=== PATIENT | female | born 1940 | race Caucasian/White ===

== ENCOUNTER 2017-08-16 10:23 | Inpatient (IN) | payer MEDICARE ==
[~2017-08-16] VITALS: Ht 152.4 cm; Wt 54.4 kg
[2017-08-16] MEDS ORDERED: ASPIRIN 81MG TABLET PO ONE (11:30)
[2017-08-16] MEDS ORDERED: DIPHENHYDRAMINE 50MG CAPSULE PO ONE (11:30)
[2017-08-16 11:36] LABS: BASOPHILS % 0.7 % (0.0-2.0); EOSINOPHILS % 2.3 % (0.0-5.0); HEMATOCRIT. 38.1 % (36.0-48.0); HEMOGLOBIN. 13.1 g/dL (12.0-16.0); LYMPHOCYTES % 41.6 % (20.0-50.0); MEAN CORPUSCULAR HEMOGLOBIN 30.2 pg (28.0-32.0); MEAN CORPUSCULAR VOLUME 87.5 fL (81.0-99.0); MEAN PLATELET VOLUME 9.5 fl (7.4-10.4); MONOCYTES % 9.3 % (2.0-8.0); NEUTROPHILS % 46.1 % (40.0-76.0); PLATELET 251 x1000/uL (130-400); RED BLOOD CELL COUNT 4.35 mill/uL (4.2-5.4); RED CELL DISTRIBUTION WIDTH 12.8 % (11.6-14.6)
[2017-08-16 11:39] LABS: PROTHROMBIN TIME 10.4 sec (9.4-11.6)
[2017-08-16 11:43] LABS: CHLORIDE 102 mEq/L (98-107)
[2017-08-16 11:49] LABS: TROPONIN I < 0.02 ng/mL (0.00-0.04)
[2017-08-16] MEDS ORDERED: AMLODIPINE 5MG TABLET PO NR (15:42)
[2017-08-16 15:44] VITALS: BP 125/59
[2017-08-16 16:00] VITALS: BP 141/62
[2017-08-16] MEDS ORDERED: REGADENOSON 0.4 MG/5 ML IV NR (16:15)
[2017-08-16] MEDS ORDERED: DEXTROSE 50% WATER 50ML SYRINGE IV PRN (18:30)
[2017-08-16] MEDS: ENOXAPARIN 30MG/0.3ML SYR SUBCUT SCH (19:06)
[2017-08-16 20:00] VITALS: BP 118/50
[2017-08-16] MEDS: BLOOD SUGAR DIAGNOSTIC STRIP TEST SCH (20:43)
[2017-08-16] MEDS: INSULIN LISPRO 100 UNITS/ML SUBCUT SCH (20:51)
[2017-08-16] MEDS ORDERED: ATORVASTATIN CALCIUM 10MG TABLET PO SCH (21:00)
[2017-08-17 04:00] VITALS: BP 154/62
[2017-08-17 05:51] LABS: BASOPHILS % 0.8 % (0.0-2.0); EOSINOPHILS % 2.6 % (0.0-5.0); HEMATOCRIT. 36.2 % (36.0-48.0); HEMOGLOBIN. 12.6 g/dL (12.0-16.0); LYMPHOCYTES % 47.8 % (20.0-50.0); MEAN CORPUSCULAR HEMOGLOBIN 30.4 pg (28.0-32.0); MEAN CORPUSCULAR VOLUME 87.4 fL (81.0-99.0); MEAN PLATELET VOLUME 9.3 fl (7.4-10.4); MONOCYTES % 9.7 % (2.0-8.0); NEUTROPHILS % 39.1 % (40.0-76.0); PLATELET 213 x1000/uL (130-400); RED BLOOD CELL COUNT 4.15 mill/uL (4.2-5.4); RED CELL DISTRIBUTION WIDTH 12.7 % (11.6-14.6)
[2017-08-17] MEDS: BLOOD SUGAR DIAGNOSTIC STRIP TEST SCH ×2 (06:17→11:50)
[2017-08-17] MEDS: INSULIN LISPRO 100 UNITS/ML SUBCUT SCH ×2 (06:17→12:13)
[2017-08-17 06:51] LABS: CHLORIDE 102 mEq/L (98-107)
[2017-08-17 07:00] LABS: TROPONIN I < 0.02 ng/mL (0.00-0.04)
[2017-08-17 08:00] VITALS: BP 151/59
[2017-08-17] MEDS ORDERED: ASPIRIN 81MG EC TABLET PO SCH (09:00)
[2017-08-17] MEDS ORDERED: AMLODIPINE 5MG TABLET PO SCH (09:00)
[2017-08-17] MEDS ORDERED: REGADENOSON 0.4 MG/5 ML IV ONE (10:22)
[2017-08-17 12:00] VITALS: BP 138/62
[2017-08-17] MEDS ORDERED: AMLO2.5T45 PO (13:22)
[2017-08-17] MEDS ORDERED: PREG200C PO (13:25)
[2017-08-17] MEDS ORDERED: PREG150C PO (13:25)
[2017-08-17] MEDS ORDERED: TRAM50TA3 PO (13:28)
[2017-08-17] MEDS ORDERED: ICOS1CAP PO (13:29)
[2017-08-17] MEDS ORDERED: FENO160T9 PO (13:31)
[2017-08-17] MEDS ORDERED: LISI40TA4 PO (13:32)
[2017-08-17] MEDS ORDERED: FAMO20TA8 PO (13:34)
[2017-08-17] MEDS ORDERED: INSU100I13 SQ (13:37)
[2017-08-17] MEDS ORDERED: INSU300I SQ (13:39)
[2017-08-17 16:00] VITALS: BP 146/62
[2017-08-17] MEDS: ENOXAPARIN 30MG/0.3ML SYR SUBCUT SCH (16:00)
[2017-08-17 16:59] VITALS: BP 146/62
== END 2017-08-17 17:17 | disposition home or self-care (01) | DRG 205 ==
LOC: EDBEDREQ 11:18 → ER 11:52 → ENRESERV 13:06 → 5WST 13:39 → EDBEDREQ 13:41
PROVIDERS: ADMIT Internal Medicine; ATTEND Internal Medicine
DX: M94.0 Chondrocostal junction syndrome [Tietze] (principal); N17.0 Acute kidney failure with tubular necrosis; E11.22 Type 2 diabetes mellitus with diabetic chronic kidney disease; E86.0 Dehydration; I13.10 Hypertensive heart and chronic kidney disease without heart failure, with stage 1 through stage 4 chronic kidney disease, or unspecified chronic kidney disease; I10 Essential (primary) hypertension; E78.5 Hyperlipidemia, unspecified; N18.9 Chronic kidney disease, unspecified; Z79.4 Long term (current) use of insulin; Z90.49 Acquired absence of other specified parts of digestive tract
CPT/HCPCS: 36415; 71045; 78452; 80048; 80053; 82962; 83880; 84484; 85025; 85610; 93005; 93017; 93306; 99285; A9500; J1650; J1815; J2785; Q0163

== ENCOUNTER 2018-07-23 14:09 | Emergency (ER) | payer MEDICARE ==
[~2018-07-23] VITALS: Ht 152.4 cm; Wt 57.0 kg
[~2018-07-23 14:09] MED LIST: AMLO2.5T45 PO; FAMO20TA8 PO; FENO160T9 PO; ICOS1CAP PO; INSU100I13 SQ; INSU300I SQ; LISI40TA4 PO; PREG150C PO; TRAM50TA3 PO
[2018-07-23 17:45] LABS: BASOPHILS % 0.7 % (0.0-2.0); EOSINOPHILS % 2.5 % (0.0-5.0); HEMATOCRIT. 36.4 % (36.0-48.0); HEMOGLOBIN. 12.4 g/dL (12.0-16.0); LYMPHOCYTES % 43.7 % (20.0-50.0); MEAN CORPUSCULAR HEMOGLOBIN 28.9 pg (28.0-32.0); MEAN PLATELET VOLUME 9.5 fl (7.4-10.4); MONOCYTES % 9.4 % (2.0-8.0); NEUTROPHILS % 43.7 % (40.0-76.0); PLATELET 246 x1000/uL (130-400); RED BLOOD CELL COUNT 4.28 mill/uL (4.2-5.4); RED CELL DISTRIBUTION WIDTH 15.7 % (11.6-14.6)
[2018-07-23 17:49] LABS: CHLORIDE 109 mEq/L (98-107)
[2018-07-23 17:52] LABS: PROTHROMBIN TIME 9.6 sec (9.1-11.1)
[2018-07-23 17:55] LABS: CLARITY URINE CLEAR (CLEAR); COLOR URINE YELLOW (YELLOW); KETONES URINE NEGATIVE (NEGATIVE); LEUKOCYTE ESTERASE URINE 2+ (NEGATIVE); NITRITE URINE NEGATIVE (NEGATIVE); OCCULT BLOOD URINE NEGATIVE (NEGATIVE); PROTEIN URINE NEGATIVE (NEGATIVE); SPECIFIC GRAVITY URINE 1.007 (1.005-1.030); UROBILINOGEN URINE 0.2 E.U./dL (0.2-1.0)
[2018-07-23 18:50] VITALS: BP 114/60
== END 2018-07-23 19:00 | disposition home or self-care (01) ==
LOC: ER 14:09
DX: N39.0 Urinary tract infection, site not specified (principal); N28.9 Disorder of kidney and ureter, unspecified; E11.9 Type 2 diabetes mellitus without complications; E78.00 Pure hypercholesterolemia, unspecified; I10 Essential (primary) hypertension; Z98.51 Tubal ligation status; Z79.4 Long term (current) use of insulin; Z79.899 Other long term (current) drug therapy
CPT/HCPCS: 36415; 71045; 84484; 93005; 99284

== ENCOUNTER 2021-08-13 17:56 | Inpatient (IN) | payer BC, MEDICARE ==
[~2021-08-13] VITALS: Ht 152.4 cm; Wt 54.4 kg
[~2021-08-13 17:56] MED LIST changes: +LISI40TA13 PO; -LISI40TA4 PO
[2021-08-13 19:29] LABS: BASOPHILS % 0.5 % (0.0-2.0); EOSINOPHILS % 3.9 % (0.0-5.0); HEMATOCRIT. 30.9 % (36.0-48.0); HEMOGLOBIN. 10.7 g/dL (12.0-16.0); LYMPHOCYTES % 23.1 % (20.0-50.0); MEAN PLATELET VOLUME 9.4 fl (7.4-10.4); NEUTROPHILS % 64.5 % (40.0-76.0); PLATELET 198 x1000/uL (130-400); RED BLOOD CELL COUNT 3.68 mill/uL (4.2-5.4); RED CELL DISTRIBUTION WIDTH 15.7 % (11.6-14.6)
[2021-08-13 19:35] LABS: CHLORIDE 102 mEq/L (98-107)
[2021-08-13] MEDS ORDERED: FUROSEMIDE 100MG/10ML VIAL IV NR (19:57)
[2021-08-13] MEDS ORDERED: INSULIN REGULAR (HUMULIN R) 300UNITS/3ML VIAL IV NR (20:00)
[2021-08-13] MEDS ORDERED: CALCIUM GLUCONATE 100MG/ML 10ML VIAL IV NR (20:00)
[2021-08-13] MEDS ORDERED: ASPIRIN 325MG EC TABLET PO ONE (21:00)
[2021-08-13] MEDS ORDERED: MAGNESIUM/ALUMINUM HYDROXIDE/SIMETHICONE 30ML UDC PO ONE (21:00)
[2021-08-13] MEDS ORDERED: FAMOTIDINE 20MG TABLET PO ONE (21:00)
[2021-08-13] MEDS ORDERED: SODIUM POLYSTYRENE SULFONATE 15 G/60 ML BOT PO NR (21:45)
[2021-08-13] MEDS ORDERED: ONDANSETRON HCL 4MG/2ML INJ IV PRN ×2 (21:45→22:00)
[2021-08-13] MEDS ORDERED: LACTULOSE 20G/30ML UDC PO NR (22:00)
[2021-08-13] MEDS ORDERED: DEXTROSE 50% WATER 50ML SYRINGE IV PRN (22:00)
[2021-08-13] MEDS ORDERED: HYDRALAZINE 20MG/ML VIAL IV PRN (22:00)
[2021-08-13] MEDS: CLOPIDOGREL 75MG TABLET PO SCH (23:33)
[2021-08-14] VITALS (10 sets, daily range): BP systolic 120–172; BP diastolic 40–57
[2021-08-14 00:36] LABS: PROTHROMBIN TIME 10.8 sec (9.6-11.0)
[2021-08-14 00:58] LABS: HDL CHOLESTEROL 33 mg/dL (40-59)
[2021-08-14 00:59] LABS: CREATINE KINASE 94 IU/L (26-192); LDL CHOLESTEROL 36 mg/dL (5-100)
[2021-08-14 01:02] LABS: CREATINE KINASE MB FRACTION 2.9 ng/mL (0.5-3.6)
[2021-08-14] MEDS ORDERED: OMEP20CA14 PO (02:26)
[2021-08-14] MEDS ORDERED: ATOR-2 PO (02:26)
[2021-08-14] MEDS ORDERED: ASPI-1160 PO (02:26)
[2021-08-14] MEDS ORDERED: TICA90TA PO (02:26)
[2021-08-14] MEDS ORDERED: AMLO5TAB88 PO (02:26)
[2021-08-14] MEDS ORDERED: CARV12.545 PO (02:26)
[2021-08-14] MEDS: BLOOD SUGAR DIAGNOSTIC STRIP TEST SCH ×4 (06:12→21:00)
[2021-08-14] MEDS: INSULIN LISPRO 100 UNITS/ML SUBCUT SCH ×4 (06:40→22:14)
[2021-08-14 08:00] LABS: BASOPHILS % 0.7 % (0.0-2.0); EOSINOPHILS % 3.2 % (0.0-5.0); HEMATOCRIT. 30.8 % (36.0-48.0); HEMOGLOBIN. 10.7 g/dL (12.0-16.0); LYMPHOCYTES % 34.3 % (20.0-50.0); MEAN CORPUSCULAR HEMOGLOBIN 28.9 pg (28.0-32.0); MEAN CORPUSCULAR VOLUME 83.5 fL (81.0-99.0); MEAN PLATELET VOLUME 9.2 fl (7.4-10.4); MONOCYTES % 10.4 % (2.0-8.0); NEUTROPHILS % 51.4 % (40.0-76.0); PLATELET 191 x1000/uL (130-400); RED BLOOD CELL COUNT 3.68 mill/uL (4.2-5.4); RED CELL DISTRIBUTION WIDTH 15.5 % (11.6-14.6)
[2021-08-14 08:10] LABS: CHLORIDE 107 mEq/L (98-107)
[2021-08-14 08:17] LABS: LDL CHOLESTEROL 37 mg/dL (5-100)
[2021-08-14 08:18] LABS: CREATINE KINASE 75 IU/L (26-192); HDL CHOLESTEROL 33 mg/dL (40-59)
[2021-08-14 08:21] LABS: CREATINE KINASE MB FRACTION 2.2 ng/mL (0.5-3.6)
[2021-08-14] MEDS: CLOPIDOGREL 75MG TABLET PO SCH (08:52)
[2021-08-14 08:59] LABS: T4 FREE 1.12 ng/dL (0.76-1.46)
[2021-08-14] MEDS ORDERED: ASPIRIN 325MG EC TABLET PO SCH (09:00)
[2021-08-14] MEDS ORDERED: LISINOPRIL 10MG TABLET PO ONE (09:15)
[2021-08-14] MEDS ORDERED: CARVEDILOL 12.5MG TABLET PO ONE (09:15)
[2021-08-14] MEDS ORDERED: LISINOPRIL 10MG TABLET PO SCH (09:35)
[2021-08-14] MEDS ORDERED: INSULIN LISPRO 100 UNITS/ML SUBCUT NR (10:00)
[2021-08-14] MEDS: ISOSORBIDE DINITRATE 10MG TABLET PO SCH ×3 (10:11→16:47)
[2021-08-14] MEDS: CARVEDILOL 12.5MG TABLET PO SCH ×2 (10:11→20:45)
[2021-08-14] MEDS: HYDRALAZINE HCL 50MG TABLET PO SCH ×2 (13:56→22:08)
[2021-08-14] MEDS: TICAGRELOR 90 MG TABLET PO SCH (16:47)
[2021-08-14] MEDS ORDERED: PREGABALIN 25MG CAPSULE PO SCH (17:45)
[2021-08-14] MEDS: PREGABALIN 50 MG CAPSULE PO SCH (20:44)
[2021-08-14] MEDS ORDERED: FAMOTIDINE 20MG TABLET PO SCH (21:00)
[2021-08-14] MEDS: PREGABALIN 25MG CAPSULE PO SCH (22:07)
[2021-08-15] VITALS: BP 118/77
[2021-08-15 04:00] VITALS: BP 158/53
[2021-08-15] MEDS: HYDRALAZINE HCL 50MG TABLET PO SCH ×2 (05:25→13:36)
[2021-08-15] MEDS: BLOOD SUGAR DIAGNOSTIC STRIP TEST SCH ×2 (06:07→11:53)
[2021-08-15] MEDS: INSULIN LISPRO 100 UNITS/ML SUBCUT SCH ×2 (06:07→12:23)
[2021-08-15 07:32] LABS: BASOPHILS % 0.5 % (0.0-2.0); EOSINOPHILS % 3.2 % (0.0-5.0); HEMATOCRIT. 30.1 % (36.0-48.0); HEMOGLOBIN. 10.6 g/dL (12.0-16.0); LYMPHOCYTES % 35.9 % (20.0-50.0); MEAN CORPUSCULAR HEMOGLOBIN 29.3 pg (28.0-32.0); MEAN CORPUSCULAR VOLUME 82.9 fL (81.0-99.0); MEAN PLATELET VOLUME 9.1 fl (7.4-10.4); NEUTROPHILS % 49.4 % (40.0-76.0); PLATELET 162 x1000/uL (130-400); RED BLOOD CELL COUNT 3.64 mill/uL (4.2-5.4); RED CELL DISTRIBUTION WIDTH 15.6 % (11.6-14.6)
[2021-08-15 08:00] VITALS: BP 179/60
[2021-08-15] MEDS: ISOSORBIDE DINITRATE 10MG TABLET PO SCH ×2 (08:34→13:48)
[2021-08-15] MEDS: TICAGRELOR 90 MG TABLET PO SCH (08:35)
[2021-08-15] MEDS: CARVEDILOL 12.5MG TABLET PO SCH (08:35)
[2021-08-15] MEDS: PREGABALIN 50 MG CAPSULE PO SCH (08:36)
[2021-08-15] MEDS: PREGABALIN 25MG CAPSULE PO SCH (08:36)
[2021-08-15] MEDS ORDERED: LISINOPRIL 40MG TABLET PO SCH (09:00)
[2021-08-15] MEDS ORDERED: ASPIRIN 81MG EC TABLET PO SCH (09:00)
[2021-08-15 11:49] VITALS: BP 148/59
[2021-08-15 13:15] VITALS: BP 140/61
[2021-08-15] MEDS ORDERED: AMLODIPINE 5MG TABLET PO SCH (21:00)
== END 2021-08-15 15:10 | disposition home or self-care (01) | DRG 392 ==
LOC: ER 17:56 → 8WST 21:40 → ENRESERV 08-14 01:54
PROVIDERS: ADMIT Family Medicine; ATTEND Family Medicine
DX: K21.9 Gastro-esophageal reflux disease without esophagitis (principal); E11.40 Type 2 diabetes mellitus with diabetic neuropathy, unspecified; E66.9 Obesity, unspecified; E87.5 Hyperkalemia; E78.5 Hyperlipidemia, unspecified; I25.10 Atherosclerotic heart disease of native coronary artery without angina pectoris; I10 Essential (primary) hypertension; E78.00 Pure hypercholesterolemia, unspecified; Z20.822 Contact with and (suspected) exposure to COVID-19; N28.9 Disorder of kidney and ureter, unspecified; M25.511 Pain in right shoulder; Z95.5 Presence of coronary angioplasty implant and graft; Z98.51 Tubal ligation status; I25.2 Old myocardial infarction; Z68.23 Body mass index [BMI] 23.0-23.9, adult; Z79.899 Other long term (current) drug therapy
CPT/HCPCS: 36415; 71045; 80048; 80053; 80061; 82550; 82553; 82962; 83036; 83880; 84439; 84443; 84484; 85025; 85379; 87426; 93005; 93306; 99285; J0360; J0610; J1815; J1940; J8499